=== PATIENT | female | born 1980 | race Caucasian/White ===

== ENCOUNTER 2023-12-01 09:10 | Emergency (ER) | payer SELFPAY ==
[~2023-12-01] VITALS: Ht 165.1 cm; Wt 85.0 kg
[2023-12-01 09:16] VITALS: O2SAT 99
[2023-12-01 10:39] LABS: BASOPHILS % 0.9 % (0.0-2.0); DIFFERENTIAL COMMENT 0; EOSINOPHILS % 0.8 % (0.0-5.0); HEMATOCRIT. 31.8 % (36.0-48.0); HEMOGLOBIN. 9.9 g/dL (12.0-16.0); LYMPHOCYTES % 9.4 % (20.0-50.0); MEAN CORPUSCULAR HEMOGLOBIN 24.4 pg (28.0-32.0); MEAN CORPUSCULAR VOLUME 78.6 fL (81.0-99.0); MEAN PLATELET VOLUME 7.9 fl (7.4-10.4); MONOCYTES % 7.2 % (2.0-8.0); NEUTROPHILS % 81.7 % (40.0-76.0); PLATELET 272 x1000/uL (130-400); RED BLOOD CELL COUNT 4.05 mill/uL (4.2-5.4); RED CELL DISTRIBUTION WIDTH 20.6 % (11.6-14.6); WHITE BLOOD COUNT 8.1 x1000/uL (4.5-11.0)
[2023-12-01] MEDS: SODIUM CHLORIDE 0.9% 1,000 ML IV ONE (10:48)
[2023-12-01] MEDS: MORPHINE SULFATE 4 MG/ML INJ (FOR IV/IM USE) IV STA ×2 (10:48→14:26)
[2023-12-01] MEDS: ONDANSETRON HCL 4MG/2ML INJ IV STA ×2 (10:48→14:26)
[2023-12-01 11:05] LABS: ALANINE AMINOTRANSFERASE 32 IU/L (10-49); ALBUMIN 3.9 g/dL (3.2-4.8); ASPARTATE AMINOTRANSFERASE 78 IU/L (<34); BILIRUBIN TOTAL 0.5 mg/dL (0.1-1.0); CALCIUM 8.5 mg/dL (8.7-10.4); CARBON DIOXIDE 26 mEq/L (21-32); CHLORIDE 106 mEq/L (98-107); CREATININE 0.7 mg/dL (0.6-1.0); GLUCOSE 92 mg/dL (70-105); POTASSIUM 4.3 mEq/L (3.5-5.1); PROTEIN TOTAL 6.8 g/dL (6.0-8.3); SODIUM 136 mEq/L (136-145); UREA NITROGEN BLOOD 14 mg/dL (9-23)
[2023-12-01 11:20] LABS: HCG SCREEN NEGATIVE
[2023-12-01] MEDS: FENTANYL CITRATE/PF 50MCG/ML 2ML VIAL IV ONE (12:29)
[2023-12-01] MEDS: LIDOCAINE 5% PATCH TOP SCH (12:30)
[2023-12-01] MEDS: ACETAMINOPHEN 1000MG/100ML 100 ML IV ONE (12:52)
[2023-12-01 13:51] LABS: PARTIAL THROMBOPLASTIN TIME 24.5 sec (23.4-31.0)
[2023-12-01 14:14] VITALS: TEMP 98.6
[2023-12-01 14:26] VITALS: BP 134/62; PULSE 64; RESP 16
== END 2023-12-01 19:26 | disposition short-term general hospital (02) ==
LOC: ER 09:38
DX: S22.41XA Multiple fractures of ribs, right side, initial encounter for closed fracture (principal); S52.92XA Unspecified fracture of left forearm, initial encounter for closed fracture; S82.142A Displaced bicondylar fracture of left tibia, initial encounter for closed fracture; S20.211A Contusion of right front wall of thorax, initial encounter; S09.90XA Unspecified injury of head, initial encounter; J93.9 Pneumothorax, unspecified; G89.11 Acute pain due to trauma; V03.19XA Pedestrian with other conveyance injured in collision with car, pick-up truck or van in traffic accident, initial encounter; Y93.89 Activity, other specified; Y92.89 Other specified places as the place of occurrence of the external cause; Y99.8 Other external cause status
CPT/HCPCS: 99291; 70450; 86870; 96365; 96375; 71045; 96361; 80053; 84703; 83690; 85025; 85610; 85730; 86850; 86900; 86901; 73100; 73120; 73560; 73590; 71260; 72125; 74177; 29125; 96376; 36415; J3010; J2405; J2270; J7030; J0131